=== PATIENT | female | born 1990 | race Caucasian/White ===

== ENCOUNTER 2018-10-22 08:21 | Day surgery (SDC) | payer BC ==
[~2018-10-22 08:21] MED LIST: KETALAR ONE
[2018-10-22] MEDS ORDERED: SUBLIMAZE IV PRN (09:02)
--- NOTE | 2018-10-22 09:04 | Anesthesia Day of Surgery ---
Anesthesia Day of Surgery - Day of Surgery Patient Examined: Yes Patient H&P Reviewed: Yes Patient is NPO: Yes
--- NOTE | 2018-10-22 09:04 | Anesthesia Consultation ---
Anesthesia Consult and Med Hx Date of service: 10/22/18 - Airway Anesthetic Teeth Evaluation: Good ROM Head & Neck: Adequate Mental/Hyoid Distance: Adequate Mallampati Class: Class II Intubation Access Assessment: Probably Good - Pulmonary Exam CTA: Yes - Cardiac Exam Cardiac Exam: RRR - Pre-Operative Health Status ASA Pre-Surgery Classification: ASA1 Proposed Anesthetic Plan: General - Pulmonary Hx Smoking: No Hx Respiratory Symptoms: No - Cardiovascular System Hx Hypertension: No Hx Heart Attack/AMI: No Hx Percutaneous Transluminal Coronary Angioplasty (PTCA): No Hx Cardia Arrhythmia: No - Central Nervous System Hx Seizures: No CVA: No - Gastrointestinal Hx Gastroesophageal Reflux Disease: No - Endocrine Hx Renal Disease: No Hx Liver Disease: No Hx Insulin Dependent Diabetes: No Hx Non-Insulin Dependent Diabetes: No Hx Thyroid Disease: No - Other Systems Hx Obesity: No - Additional Comments Anesthesia Medical History Comments: No prior GA. No FHx anesthetic complications.
[2018-10-22] MEDS ORDERED: METHERGINE IM ONE (09:50)
[2018-10-22] MEDS ORDERED: SILVER NITRATE TP ONE (09:50)
[2018-10-22] MEDS ORDERED: SUBLIMAZE ONE (09:59)
[2018-10-22] MEDS ORDERED: DIPRIVAN 10 MG/ML IV ONE (09:59)
[2018-10-22] MEDS ORDERED: XYLOCAINE MPF 2% ONE (09:59)
[2018-10-22] MEDS ORDERED: VERSED IV NR (10:00)
[2018-10-22] MEDS ORDERED: LACTATED RINGERS 1,000 ML IV SCH (10:00)
[2018-10-22] MEDS ORDERED: TRANSDERM-SCOP TD NR (10:00)
[2018-10-22] MEDS ORDERED: XYLOCAINE TOPICAL 2% 5ML ONE (10:11)
--- NOTE | 2018-10-22 10:29 | Short Stay Summary ---
Short Stay Documentation Date of service: 10/22/18 Narrative H&P: 28y/o female status post a recent that during the has been complicated by abnormal uterine bleeding. The patient sustained a hemorrhage with manual removal of her placenta. Recent ultrasound demonstrates findings of retained products. - History Principal diagnosis: Abnormal uterine bleeding Past Medical History: No medical history Past Surgical History: No surgical history Social history: - Allergies and Medications Current Medications: Allergies No Known Allergies Allergy (Verified 12/11/16 11:59) Home Medications Medication Instructions Recorded Confirmed Last Taken Type Ibuprofen [Motrin] 600 mg PO Q8H PRN #30 tablet 12/13/16 10/22/18 Unknown Rx oxyCODONE /ACETAMINOPHEN [Percocet 1 tab PO Q6HR PRN #30 tablet 12/13/16 10/22/18 Unknown Rx 5/325] Docusate Sodium [Colace] 100 mg PO BID PRN #60 capsule 08/16/18 10/22/18 Unknown Rx Ferrous Sulfate [Feosol 325 MG tab] 325 mg PO TID #90 tablet 08/16/18 10/22/18 10/20/18 09:00 Rx HYDROcodone/APAP 5-325 [[place] 1 each PO Q6HR PRN #30 tablet 08/16/18 10/22/18 Unknown Rx 5/325] Active Medications Fentanyl (Sublimaze) 50 mcg IV Q5MIN PRN PRN Reason: Pain , Severe (7-10) Stop: 10/22/18 20:00 Lactated Ringer's (Lactated Ringers) 1,000 mls @ 100 mls/hr IV DIRECT DISHA Last Admin: 10/22/18 09:40 Dose: 100 mls/hr Documented by: Midazolam HCl (Versed) 2 mg IV PREOP NR Stop: 10/22/18 23:59 Scopolamine (Transderm-Scop) 1 each TD PREOP NR Stop: 10/22/18 20:00 Last Admin: 10/22/18 09:40 Dose: 1 each Documented by: - Physical exam General appearance: no acute distress Integumentary: no rash HEENT: Atraumatic Lungs: Clear to auscultation Breasts: deferred Heart: Regular rate Gastrointestinal: normal Female Genitourinary: deferred Rectal Exam: deferred - Brief post op/procedure progress note Date of procedure: 10/22/18 Pre-op diagnosis: retained products of conception Post-op diagnosis: same Procedure: Suction dilatation and curettage Diagnostic hysteroscopy Ultrasound-guided extraction of uterine contents Anesthesia: MACARIO Surgeon: VIVEK LANDA Estimated blood loss: other (600ml) Pathology: list (retained placenta) Specimen disposition: to lab Condition: stable - Hospital course Hospital course: The patient was admitted the day of surgery to undergo a dilatation and curettage for retained products of conception. Please see operative note for details of surgery. Postoperative course was uneventful. - Disposition Condition at discharge: Good Disposition: [id number] TO HOME OR SELFCARE Short Stay Discharge Plan Activity: other (pelvic rest for 1 week) Additional Instructions: Scheduled follow-up with Dr. Landa in 1-2 weeks Prescriptions: Ibuprofen [Motrin] 800 mg PO Q8HR PRN #60 tablet PRN Reason: Pain, Mild (1-3) HYDROcodone/APAP 5-325 [R[place]way 5/325] 1 each PO Q6HR PRN #20 tablet PRN Reason: Pain
[2018-10-22] MEDS ORDERED: ANCEF/STERILE WATER 2 GM/20 ML 2 GM/20 ML SYRINGE IV NR (11:00)
[2018-10-22] MEDS ORDERED: NACL 0.9% 1000 ML IR ONE (11:04)
[2018-10-22] MEDS ORDERED: CYTOTEC PR SCH (11:15)
[2018-10-22] MEDS ORDERED: NACL 0.9% IR ONE (11:20)
[2018-10-22] MEDS ORDERED: CYTOTEC PR ONE (11:30)
--- NOTE | 2018-10-22 11:44 | Operative Report ---
Operative Report Operative Report: Date of surgery: 10/22/2018 Preoperative diagnosis: Same products of conception Postoperative diagnosis: Same as above Procedure: Suction dilatation and curettage; diagnostic hysteroscopy; ultrasound-guided evacuation of uterine cavity contents Surgeon: Yaquelin Adams M.D. Anesthesia: Gen. endotracheal anesthesia Estimated blood loss: 600 mL Findings: Thickened endometrium with findings of a 3 cm placental remnants Indication: 28-year-old female who was status post a spontaneous vaginal deliver y of a twin . course has been complicated by significant abnormal bleeding with ultrasound findings of a complex mass in the endometrium likely consistent with retained placenta Procedure: The patient was taken to the operating room and given general endotracheal anesthesia without complication. The patient is prepped and draped in a normal sterile fashion. A bivalve speculum was placed in the patient's vagina and a single-tooth tenaculums placed on the anterior lip of the cervix. The uterine cavity was then sounded. The cervical os was then dilated with graduated dilators. A number and [place] curved cannula was placed to suction and found to be adequate. The cannula was then gently inserted into the dilated cervical os. Evacuation of the uterine contents were performed. Under ultrasound guidance it was noted that the endometrial lining and still remained thickened. A polyp forcep was inserted under ultrasound guidance with removal of retained placenta. The specimen was approximately 3 cm in length. Sharp curettage and endometrial surface was performed until cry was achieved. The cannula was then gently reinserted into the uterine cavity to evacuate any additional contents. Patient continued to have vaginal bleeding after removal of the retained placenta. Hysteroscope was then inserted with no visual evidence of any additional retained products or uterine perforation. Intraoperatively the patient was given Methergine, Cytotec 800 g per rectum, and Pitocin diluted in normal saline intravenously. Eventually the vaginal bleeding improved significantly. The vaginal instruments were then removed atraumatically. The patient was then successfully extubated and taken to the recovery room in stable condition. All sponge laps and needle counts were correct 2. Pathology consisted of products of conception.
[2018-10-22 12:54] VITALS: BP 114/64
--- NOTE | 2018-10-22 13:45 | Ultrasound Report ---
Ultrasound guidance for intraoperative procedure INDICATION: Intraoperative dilatation and curettage procedure following twin delivery Radiology personnel assisted Dr. Adams in the operating suite with sonographic guidance during t he procedure. No images were obtained to review. The crankshaft grinder commented that the endometrium had a thickness of approximately 18 mm prior to the procedure and following the procedure only 3 mm thickn ess. Signer Name: Haider Mcmanus MD Signed: 10/22/2018 1:41 PM Workstation Name: [id number]
--- NOTE | 2018-10-22 16:14 | Post Anesthesia Evaluation ---
- Post Anesthesia Evaluation Patient Participated: Yes Airway Patent: Yes Stable Respiratory Function: Yes Nausea/Vomiting: No Temp > 96.8F: Yes Pain Manageable: Yes Adequeate Hydration: Yes Anesthesia Complications: No
== END 2018-10-22 08:22 | disposition home or self-care (01) ==
LOC: OR 08:21
PROVIDERS: ATTEND Obstetrics & Gynecology
DX: O02.89 Other abnormal products of conception (principal); Z79.899 Other long term (current) drug therapy
CPT/HCPCS: 36415; 59160; 76998; 84703; 88305; A4217; J2210; J2250; J2590; J2704; J3010; J7030; J7120